=== PATIENT | male | born 2000 | race African-American/Black ===

== ENCOUNTER 2023-12-20 15:56 | Emergency (ER) | payer SELFPAY ==
[2023-12-20 16:12] VITALS: BP 114/59; PULSE 58; RESP 18; TEMP 37.3; O2SAT 100; BMI 17.5
--- NOTE | 2023-12-20 16:15 | ED.DENTAL ---
HPI - Dental/Oral General Chief complaint: Dental/Oral Stated complaint: dental problem and armpit swelling Time Seen by Provider: 12/20/23 16:45 History of Present Illness HPI Narrative: patient complains of left lower bottom dental pain for several weeks getting worse, he is trying to get an appointment with a dentist but has an insurance problem, he denies any difficulty breathing or swallowing he denies any facial swelling, is just concerned that the pain has been getting somewhat worse but remains mild he is able to eat and drink Related Data Allergies Allergy/AdvReac Type Severity Reaction Status Date / Time No Known Allergies Allergy Verified 12/20/23 16:15 [facility] Past Medical History Source: nursing notes reviewed Social History Social History Advance Directives: No Advance Directives Information Provided: No Do you have a plan to hurt others: No Plan Physical Exam Vital Signs: Vital Signs: Last Vital Signs Temp 98.2 F 12/20/23 16:50 Pulse 52 12/20/23 16:50 Resp 16 12/20/23 16:50 BP 112/44 L 12/20/23 16:50 Pulse Ox 97 12/20/23 16:50 O2 Del Method Room Air 12/20/23 16:50 BMI result Body Mass Index 17.5 general appearance no distress comfortable cooperative speaking full sentences The ears are normal with bilateral tympanic membranes without redness or perforation, no bulging, canals normal Sinuses nontender Dental exam the left rear lower molar is decayed, there is no swelling there is no redness in the face, there is no swelling under the tongue no impairment of breathing or swallowing no drooling, the tooth is mildly tender no gum swelling no abscess The pharynx is clear without redness swelling or exudate, membranes moist Neck is supple Respiratory no distress Skin no rash Course Course Course Narrative: This is a Rapid Medical Examination (RME) performed by Devika Johnson PA-C in triage. Full HPI, ROS, assessment and treatment plan per primary provider in the Main ED. 23 yo male here for eval of dental pain. was evaluated at [facility] for this one week ago. he was placed on amoxicillin which he has been taking as prescribed without improvement. He was advised to follow up with dentist. He has tried to make an appointment however is having issues due to insurance. He presents today with continued left lower dental pain extending to his neck. denies fever, chills, difficulty swallowing, facial swelling, difficulty breathing. on exam, well appearing, broken left lower molar. no periapical swelling. no discharge. no swelling noted to buccal mucosa. No cervical lymphadenopathy. No anterior neck swelling. no stridor. Plan: labs Patient is already taking amoxicillin but it may not be helpful as problem may be deep dental caries so no new antibiotic is ordered he is already got Tylenol and Motrin at home and was just here today to just get it double checked, he is trying to get an appointment with a dentist Medical Decision Making Lab Data 12/20/23 16:27 12/20/23 16:27 Labs: Lab Results 12/20/23 Range/Units 16:27 WBC 5.0 (4.8-10.8) X10*3/uL RBC 4.46 L (4.60-5.80) X10*6/uL Hgb 14.0 (14.0-18.0) g/dl Hct 40.2 L (42.0-52.0) % MCV 90.1 (80.0-98.0) fL MCH 31.4 (27.0-33.0) pg MCHC 34.8 (31.0-36.0) g/dl RDW 12.1 (11.0-16.0) % Plt Count 189 (160-400) X10*3/uL MPV 10.1 (9.4-12.4) fL Immature Gran % (Auto) 0.2 (0.0-0.4) % Neut % (Auto) 57.3 (45-73) % Lymph % (Auto) 26.2 (20-40) % [place] % (Auto) 11.7 H (2-11) % Eos % (Auto) 3.4 (0-4) % Baso % (Auto) 1.2 (0-2) % Lymph # (Auto) 1.3 (1.2-4.9) X10*3/uL [place] # (Auto) 0.6 (0.1-1.2) X10*3/uL Eos # (Auto) 0.2 (0.0-0.4) X10*3/uL Baso # (Auto) 0.1 (0.0-0.2) X10*3/uL Abs Immat Gran (auto) 0.01 (0.00-0.03) X10*3/uL Absolute Neuts (auto) 2.9 (2.0-8.3) x10*3/uL Absolute Nucleated RBC 0.000 (0.0-0.012) X10*3/uL Nucleated RBC % (auto) 0.0 (0.0-0.2) /100WBC Sodium 144 (135-145) mmol/L Potassium 3.8 (3.3-5.1) mmol/L Chloride 106 (96-108) mmol/L Carbon Dioxide 27 (22-29) mmol/L Anion Gap 15 (12-20) BUN 5 L (9-16) mg/dL Creatinine 0.84 (0.5-1.4) mg/dL Estim Creat Clear Calc 102.9 Estimated GFR > 60 Random Glucose 104 (60-115) mg/dL Calcium 9.4 (8.4-10.2) mg/dL Magnesium 2.1 (1.6-2.6) mg/dL Total Bilirubin 1.4 H (0.0-1.0) mg/dL AST 15 (5-37) U/L ALT 6 (0-40) U/L Alkaline Phosphatase 61 (39-117) U/L Total Protein 6.9 (6.5-8.0) g/dL Albumin 4.4 (3.5-5.0) g/dL Discharge Plan Discharge Clinical Impression: Dental caries Patient Disposition: Home, Self-Care Additional Instructions: no sign of any dangerous infection or worrisome condition now, but there was an obvious cavity in the tooth so follow with dentist Return any time any worse condition or any concerns You can use Motrin with [id number] Tylenol as needed for pain and best plan is finish antibiotic Print Language: [place]
[2023-12-20 16:32] LABS: MANUAL DIFF FLAG NO
[2023-12-20 16:38] LABS: Basophils Absolute Auto 0.1 X10*3/uL (0.0-0.2); Basophils Percent Auto 1.2 % (0-2); Eosinophils Absolute Auto 0.2 X10*3/uL (0.0-0.4); Eosinophils Percent Auto 3.4 % (0-4); Hematocrit 40.2 % (42.0-52.0); Imm Gran Abs Auto 0.01 X10*3/uL (0.00-0.03); Imm Gran Pct Auto 0.2 % (0.0-0.4); Lymphocytes Absolute Auto 1.3 X10*3/uL (1.2-4.9); Lymphocytes Percent Auto 26.2 % (20-40); Mean Corpuscular HGB Conc 34.8 g/dl (31.0-36.0); Mean Corpuscular Hemoglobin 31.4 pg (27.0-33.0); Mean Corpuscular Volume 90.1 fL (80.0-98.0); Mean Platelet Volume 10.1 fL (9.4-12.4); Monocytes Absolute Auto 0.6 X10*3/uL (0.1-1.2); Monocytes Percent Auto 11.7 % (2-11); Neutrophils Absolute Auto 2.9 x10*3/uL (2.0-8.3); Neutrophils Percent Auto 57.3 % (45-73); Platelet Count 189 X10*3/uL (160-400); Red Blood Count 4.46 X10*6/uL (4.60-5.80); Red Cell Distribution Width 12.1 % (11.0-16.0)
[2023-12-20 16:50] VITALS: BP 112/44; PULSE 52; RESP 16; TEMP 36.8; O2SAT 97
[2023-12-20 17:00] LABS: Alanine Aminotransferase 6 U/L (0-40); Albumin Level 4.4 g/dL (3.5-5.0); Alkaline Phosphatase 61 U/L (39-117); Anion Gap 15 (12-20); Aspartate Amino Transferase 15 U/L (5-37); Bilirubin Total 1.4 mg/dL (0.0-1.0); Blood Urea Nitrogen 5 mg/dL (9-16); Calcium 9.4 mg/dL (8.4-10.2); Carbon Dioxide 27 mmol/L (22-29); Chloride 106 mmol/L (96-108); Creatinine Clr Calc Pharmacy 102.9; Estimated Glomerular Filt Rate > 60; Glucose Random 104 mg/dL (60-115); Magnesium 2.1 mg/dL (1.6-2.6); Potassium 3.8 mmol/L (3.3-5.1); Sodium 144 mmol/L (135-145); Total Protein 6.9 g/dL (6.5-8.0)
[2023-12-20 18:02] VITALS: BP 112/44; PULSE 52; RESP 16; TEMP 36.8; O2SAT 97
== END 2023-12-20 18:03 | disposition home or self-care (01) ==
PROVIDERS: Physician Assistant Medical; Emergency Provider Emergency Medicine
DX: K02.9 Dental caries, unspecified (principal); K08.89 Other specified disorders of teeth and supporting structures; M54.2 Cervicalgia
CPT/HCPCS: 36415; 80053; 83735; 85025; 99283; 99284

== ENCOUNTER 2024-12-05 17:43 | Emergency (ER) | payer MEDICAID, SELFPAY ==
--- NOTE | ~2024-12-05 | XR_ITS ---
CLINICAL HISTORY: lumbar pain 3 views lumbar spine Comparison: None Findings: Normal vertebral body alignment. No acute fractures or dislocation. No significant degenerative change. IMPRESSION: No acute findings. This document has been electronically signed by: Sher Dela Cruz MD on 12/05/2024 19:41:38
--- NOTE | 2024-12-05 18:28 | ED.DENTAL ---
HPI - Dental/Oral General Chief complaint: Dental/Oral Stated complaint: toothache Time Seen by Provider: 12/05/24 21:05 Source: patient Mode of arrival: ambulatory Limitations: no limitations History of Present Illness ED Provider: MIKI ARTEAGA Narrative: 24 yo male with one year of L lower molar decay that he has been on antibiotics on and off. He has no swelling in the neck. He has no fevers. He denies having a dentist. He randomly started with low back pain but no saddle anesthesia, no numbness and no weakness. He denies trauma to the back. NO thinners and no IVDA MD Complaint: tooth pain Location: Tooth # (18, 19) Onset (ago): day(s) (1) Duration: intermittent Severity: moderate Relieving factors: nothing Exacerbating factors: chewing, cold, heat and drinking fluids Context: history of dental caries and poor dental care Treatment prior to arrival: none Related Data Previous Rx's ?Medication ?Instructions ?Recorded amoxicillin 500 mg capsule 500 mg PO BID 7 days #14 caps 12/05/24 cyclobenzaprine 10 mg tablet 10 mg PO TID PRN muscle spasm #20 12/05/24 tabs Allergies Allergy/AdvReac Type Severity Reaction Status Date / Time No Known Allergies Allergy Verified 12/05/24 18:31 Review of Systems Review of Systems: Constitutional : No Weight loss, No Fever, No Chills, ENT/Mouth : No Hearing loss, No Ear Pain, pos dental pain Cardiovascular : No Chest Pain, No SOB Respiratory : No Cough, No Dyspnea Gastrointestinal : No Nausea, No Vomiting, No Diarrhea, No abdominal Pain, No Hematochezia, No Melena Genitourinary : No Dysuria, No Urinary Frequency, No Hematuria, No Urinary Incontinence, Musculoskeletal : positive back pain Skin : No Skin Lesions, No rash Neuro : No Weakness, No Numbness, No Paresthesias, no loss of bowel or bladder incontinence, no saddle anesthesia all other systems reviewed and are negative PMFSH Past Medical History Attestation statement: The following information was validated with the patient. Source: old records reviewed Medical History No pertinent past medical history Social History Social History (Updated 12/05/24 @ 21:30 by Lori Canales DO) Patient Tobacco Use Status: Never used Tobacco Substance Use Type: Marijuana Physical Exam Vital Signs: Vital Signs: Last Vital Signs Temp 98.3 F 12/05/24 20:51 Pulse 55 12/05/24 20:51 Resp 16 12/05/24 20:51 BP 114/52 L 12/05/24 20:51 Pulse Ox 96 12/05/24 20:51 O2 Del Method Room Air 12/05/24 20:51 BMI result Body Mass Index 17.5 Appearance: Alert. Oriented X3. No acute distress. Eyes: Pupils equal, round and reactive to light. ENT: Pharynx normal. L lower molars decay last two molars no sublingual or submandibular swelling, no overlying cellulitis, no trismus Neck: Normal inspection. Neck supple. CVS: Normal heart rate and rhythm. Pulses normal. Respiratory: No respiratory distress. Breath sounds normal. Abdomen: Soft and nontender. Skin: Skin warm and dry. Normal skin color. Normal skin turgor. Extremities: No lower extremity edema. Back: ttp along lower back and sacrum but no mass or abscess felt Neuro: Oriented X 3. No motor deficit. No sensory deficit. CN2-12 intact Course Course Course Narrative: This is an RME performed by Bianca Alvarez CNP: Additional HPI, ROS, PE not included below will be deferred to primary provider. 24 yo male without sig pmhx presents to ED due to R lower dental toothache intermittent x 1 year currently not problematic, and lower back pain that began this morning, L sided pulsating, intermittent x1 year arm and shoulder pain. States he does not have a PCP at this time. Denies recent trauma/injury, bowel/bladder incontinence, penile discharge Plan: UA, XR lumbar spine Medical Decision Making Medical Decision Making MDM Narrative: 24 yo male with PMH of dental decay no current dentist - no signs of deeper space infection. Also has low back pain but no cauda equina symptoms and no red flags on exam - at this time xray ordered for spine, start on muscle relaxers - for tooth start on amoxicillin. He is not toxic appearing. Can be managed as outpatient. Differential Diagnosis Differential Diagnoses: The differential diagnosis associated with the presentation includes toothache, dental decay no signs of cauda equina or infection Admission/Observation Consideration of admission/observation: Escalation of care including admission/observation considered stable for outpatient management Independent Interpretation I performed an independent interpretation of an: Plain X-Ray (normal ) Radiology Impression Discussion of test interpretation with radiology: I have reviewed the radiologist's reading. Independent Historian Clinical information obtained from an independent historian. History obtained from or confirmed by: Friend Prescription Management I considered prescription management with: Pain Medication and Antibiotic Discharge Plan Discharge Clinical Impression: Toothache Low back pain Qualifiers: Chronicity: acute Back pain laterality: bilateral Sciatica presence: without sciatica Qualified Code(s): M54.50 - Low back pain, unspecified Patient Disposition: Home, Self-Care Instructions: Acute Low Back Pain (ED), Toothache (ED) Additional Instructions: xray reassuring return for worsening symptoms increased pain, numbness, weakness or any other concerns On amoxicillin, softer bowel movements are to be expected. Call your provider if you move your bowels more than 4 times a day, your bowel movements are almost all liquid, or you get a rash.? please follow up with a dentist Prescriptions: New cyclobenzaprine 10 mg tablet 10 mg PO TID PRN (Reason: muscle spasm) Qty: 20 0RF amoxicillin 500 mg capsule 500 mg PO BID 7 Days Qty: 14 0RF Print Language: [place]
[2024-12-05 18:30] VITALS: BP 115/67; PULSE 74; RESP 18; TEMP 36.8; O2SAT 100; BMI 17.5
[2024-12-05 20:51] VITALS: BP 114/52; PULSE 55; RESP 16; TEMP 36.8; O2SAT 96
--- NOTE | 2024-12-05 20:56 | PC.NURSE ---
Patient is a 24 yo male without sig pmhx presents to ED due to R lower dental toothache intermittent x 1 year currently not problematic, as well as other random complaints including body aches. Alert and oriented. Lungs clear bilat. Respirations even and non-labored. Abdomen soft, flat, non-tender with positive bowel sounds. No LE edema noted.
[2024-12-05] MEDS: Cyclobenzaprine HCl 10 MG TABLET PO (21:30)
[2024-12-05] MEDS: Amoxicillin 500 MG CAPSULE PO (21:36)
[2024-12-05 21:49] LABS: Appearance Urine Clear; Color Urine Yellow; Glucose Urine UA Negative (Negative); Leukocyte Esterase Urine Negative (Negative); Nitrite Urine Negative (Negative); PH 7.5 (5.0-9.0); Urine Blood Negative (Negative); Urine Ketones Negative (Negative); Urine Protein Negative (Neg-Trace)
[2024-12-05 21:50] VITALS: BP 114/52; PULSE 55; RESP 16; TEMP 36.8; O2SAT 96
== END 2024-12-05 21:50 | disposition home or self-care (01) ==
PROVIDERS: Nurse Practitioner Family; Emergency Provider Emergency Medicine
DX: M54.50 Low back pain, unspecified (principal); K08.89 Other specified disorders of teeth and supporting structures
CPT/HCPCS: 72100; 81003; 99283; 99284

== ENCOUNTER → 2024-12-05 18:32 | Outpatient (BNV) | payer MEDICAID, SELFPAY | PROVIDERS: Visit Provider Radiology Diagnostic Radiology | DX: M54.50 Low back pain, unspecified (principal) | CPT/HCPCS: 72100 ==